=== PATIENT | male | born 1950 | race Caucasian/White ===

== ENCOUNTER → 2022-12-30 | Outpatient (CLI) | payer MEDICARE ==
[2022-12-30 19:55] LABS: Alanine Aminotransfer (ALT/SGP 22 U/L (12-78); Albumin, Blood 3.1 g/dL (3.4-5.0); Albumin/Globulin Ratio 0.9 (0.8-1.8); Alk Phos 55 U/L (50-136); Anion Gap 8 mmol/L (6-16); Aspartate Aminotrans (AST/SGOT 8 U/L (12-37); Bilirubin, Direct <0.1 mg/dL (0.0-0.3); Bilirubin, Indirect Unable to Calculate mg/dL (0.1-0.7); Bilirubin, Total 0.3 mg/dL (0.1-1.0); Blood Urea Nitrogen 11 mg/dL (8-24); Bun/Creatinine Ratio 12.5 (12.0-20.0); CO2, Blood 25 mmol/L (21-32); Calcium, Blood 8.2 mg/dL (8.5-10.1); Chloride, Blood 106 mmol/L (98-108); Creatinine, Blood 0.88 mg/dL (0.60-1.20); Globulin, Blood 3.3 g/dL (2.2-4.0); Glomerular Filtration Rate 91 (60-); Glucose, Blood 151 mg/dL (70-99); Potassium, Blood 4.1 mmol/L (3.5-5.5); Sodium, Blood 139 mmol/L (136-145); Total Protein, Blood 6.4 g/dL (6.4-8.2)
== END | disposition home or self-care (01) ==
LOC: LAB 17:18 → LAB SHORT 17:18
PROVIDERS: Nurse Practitioner Family
DX: L29.9 Pruritus, unspecified (principal); N18.30 Chronic kidney disease, stage 3 unspecified
CPT/HCPCS: 80053; 82248

== ENCOUNTER 2023-04-21 11:58 | Emergency (ER) | payer MEDICARE ==
[~2023-04-21] VITALS: Ht 188 cm; Wt 95.2 kg
[2023-04-21 12:45] VITALS: BP 145/94
== END 2023-04-21 13:24 | disposition home or self-care (01) ==
LOC: ER 11:58
DX: L12.0 Bullous pemphigoid (principal); I12.9 Hypertensive chronic kidney disease with stage 1 through stage 4 chronic kidney disease, or unspecified chronic kidney disease; N18.9 Chronic kidney disease, unspecified; I48.91 Unspecified atrial fibrillation; Z88.5 Allergy status to narcotic agent
CPT/HCPCS: 99284; A9270